=== PATIENT | male | born 1985 | race Caucasian/White ===

== ENCOUNTER 2017-04-24 14:10 | Emergency (ER) | payer OTHER ==
[~2017-04-24] VITALS: Ht 177.8 cm; Wt 86.2 kg
[2017-04-24 14:11] VITALS: BP 129/93
[2017-04-24] MEDS ORDERED: LIDOCAINE-MPF 2% ,5ML ONE (14:33)
[2017-04-24] MEDS ORDERED: LIDOCAINE 1%, 20ML ONE (14:34)
[2017-04-24] MEDS ORDERED: LIDOCAINE 1%, 20ML SQ ONE (15:00)
[2017-04-24] MEDS ORDERED: BACITRACIN ZINC OINT 500U/GM, 0.9 GM ONE (15:31)
== END 2017-04-24 15:49 | disposition home or self-care (01) ==
LOC: ED 15:44
DX: S61.511A Laceration without foreign body of right wrist, initial encounter (principal); F32.9 Major depressive disorder, single episode, unspecified; W25.XXXA Contact with sharp glass, initial encounter; Y93.89 Activity, other specified; Y92.89 Other specified places as the place of occurrence of the external cause; Y99.8 Other external cause status
CPT/HCPCS: 12002; 99283; J3490